=== PATIENT | male | born 1975 | race Caucasian/White ===

== ENCOUNTER 2019-09-13 09:22 | Emergency (ER) | payer OTHER ==
[~2019-09-13] VITALS: Ht 182.9 cm; Wt 91.0 kg
--- NOTE | 2019-09-13 09:25 | NUR ---
PT CALLED FOR TRIAGE, "IN THE BR"
[2019-09-13] MEDS ORDERED: OXYC-307 PO (09:41)
[2019-09-13] MEDS ORDERED: AMLO2.5T5 PO (09:42)
[2019-09-13] MEDS ORDERED: METH750T2 PO (09:42)
[2019-09-13] MEDS ORDERED: IBUP-1223 PO (09:43)
[2019-09-13] MEDS ORDERED: LISI2.5T PO (09:43)
[2019-09-13] MEDS ORDERED: TRAM50TA2 PO (09:45)
[2019-09-13] MEDS ORDERED: MULT-478 PO (09:45)
[2019-09-13] MEDS ORDERED: OMEG1CAP23 PO (09:47)
[2019-09-13] MEDS ORDERED: CYCLOBENZAPRINE 10 MG TABLET ONE (09:48)
[2019-09-13] MEDS ORDERED: KETOROLAC 60 MG/2 ML ONE (09:48)
[2019-09-13] MEDS ORDERED: KETOROLAC 30 MG/1 ML IM ONE (10:00)
[2019-09-13] MEDS ORDERED: CYCLOBENZAPRINE 10 MG TABLET PO ONE (10:00)
--- NOTE | 2019-09-13 10:58 | NUR ---
RECEIVED REPORT FROM JUAN ALBERTO SAGE. ASSUMING CARE AT THIS TIME. PT AT MRI.
[2019-09-13 11:26] VITALS: BP 127/76
--- NOTE | 2019-09-13 11:27 | NUR ---
PT BACK FROM MRI. PT RESTING ON AZEBTRAVIS. WARNER.
--- NOTE | 2019-09-13 11:30 | NUR ---
ALL RESULTS ARE BACK AT THIS TIME. CHART UP FOR RECHECK.
== END 2019-09-13 11:50 | disposition home or self-care (01) ==
LOC: ED 09:49
DX: G89.29 Other chronic pain (principal); M51.17 Intervertebral disc disorders with radiculopathy, lumbosacral region; I10 Essential (primary) hypertension; F17.200 Nicotine dependence, unspecified, uncomplicated
CPT/HCPCS: 72148; 96372; 99284; J1885